=== PATIENT | female | born 1995 | race African-American/Black ===

== ENCOUNTER 2020-06-29 19:13 | Outpatient (CLI) | payer OTHER ==
[~2020-06-29] VITALS: Ht 165.1 cm; Wt 82.1 kg
[2020-06-29 19:47] VITALS: BP 125/74
[2020-06-29] MEDS ORDERED: PRENTAB9 PO (19:53)
--- NOTE | 2020-06-29 20:51 | IPNPDOC ---
Text Note Date of Service The patient was seen on 06/29/20. NOTE 06/29/202042 PM 24 YO LMP 10/22/19 EDC 07/28/20 AT 35.4 WEEKS THOUGHT SROM NO PAD NO DRAINAGE. NO DISTRESS NO DISCHARGE NO BLEEDING NO CONTRACTIONS . CATEGORY 1 STRIP . STERILE VAGINAL EXAMINATION NO POOLING NO DISCHARGE NITRAZINE NEGATIVE , SLIDE MICRO NEGATIVE GBS CULTURE DONE CERVIX LONG THICK CLOSED . US CONSENTED CHANEL 3 QUADRANTS 12.03 CM SMALLEST VERTICAL 2,81 CM VERTEX LIMB MOVEMENT NOTED . PATIENT GIVEN PRECAUTION DISCHARGED UNDELIVERED VS,Fishbone, I+O VS, Fishbone, I+O Vital Signs Date Time Temp Pulse Resp B/P (MAP) Pulse Ox O2 Delivery O2 Flow Rate FiO2 06/29/20 19:47 98.4 140 16 125/74 (91) URINE 1,020 PH 5 ALL NEGATIVE Khurram Gaines MD Jun 29, 2020 20:51
== END 2020-06-29 20:45 | disposition home or self-care (01) ==
LOC: EEVIPCON 19:13 → M LDO 19:13
PROVIDERS: ATTEND Obstetrics & Gynecology
DX: O26.893 Other specified pregnancy related conditions, third trimester (principal); Z3A.35 35 weeks gestation of pregnancy
CPT/HCPCS: 59025; 76815; 87081; G0378; G0463

== ENCOUNTER 2020-08-03 01:39 | Inpatient (IN) | payer OTHER ==
[~2020-08-03] VITALS: Ht 165.1 cm; Wt 86.1 kg
[2020-08-03] VITALS (16 sets, daily range): BP systolic 104–234; BP diastolic 59–151
[~2020-08-03 01:39] MED LIST: PRENTAB9 PO
[2020-08-03 02:20] LABS: HEMOGLOBIN 10.8 g/dl (12.0-15.5); MEAN CORPUSCULAR HEMOGLOBIN 27.1 pg (27.0-33.0); MEAN CORPUSCULAR HGB CONC 31.8 g/dl (32.0-36.5); MEAN CORPUSCULAR VOLUME 85.4 fl (80.0-96.0); PLATELET COUNT, AUTOMATED 241 10^3/uL (150-450); RED BLOOD COUNT 3.98 10^6/uL (4.00-5.40); WHITE BLOOD COUNT 7.5 10^3/uL (4.0-10.0)
[2020-08-03] MEDS ORDERED: FENTANYL 2MCG/ML ROPIVACAINE 0.2% IN 0.9% NACL 100ML IVBAG As Ordered ONE (02:56)
--- NOTE | 2020-08-03 03:03 | HPEPDOC ---
Obstetrical History & Physical General Date of Admission Aug 03, 2020 at 02:03 History of Present Illness 24yo at 40+5 presents in early labor. She has been painfully cristian since this morning and is requesting an epidural. RN exam in triage 4cm. She is scheduled for induction Sunday. She denied LOF, decreased FM, VB. 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 Past Medical History Medical History Pre- normocytic anemia with normal work up, stable over Surgical History: Denies/None Family History Significant Family History: No pertinent family hx Social History Marital Status: Family situation: Spouse/partner home Psychosocial History: No pertinent psych hx * Smoker: non-smoker Alcohol: Denies Drugs: denies Imunizations Tdap status: current Influenza Status: current Allergies Coded Allergies: No Known Drug Allergies (Verified Allergy, Unknown, 06/29/20) Medications Scheduled No.137/Iron/Folic Acd ( Vitamin Tablet) 1 Each Tablet, 1 TAB PO DAILY Physical Examination Physical Examination GENERAL: Alert and oriented times three. BREAST: . ABDOMEN: Gravid and non-tender to touch. FETUS: fetus is vertex (VTX) by US HEART RATE: Regular rate and rhythm. LUNGS: Clear to auscultation (CTA). EXTREMITIES: No edema. No clonus. Laboratory Data 24H LABS Laboratory Tests 2 08/03/20 02:13: Nucleated Red Blood Cells % (auto) 0.0 08/03/20 02:32: Serology Scanned Report Hepatitis B Testing CBC/BMP Laboratory Tests 08/03/20 02:13 Urine Culture: Contaminated Pertinent Laboratoy Data Blood Type: A+ RBC Antibody Screen: Negative HIV: Negative Hepatitis B: Negative Rapid Plasma Reagin: Nonreactive Rubella: Immune Varicella: Immune Chlamydia/Gonorrhea: Negative Group B Streptococcus: Negative Quad Screen Test: Declined Cystic Fibrosis: Negative Glucose Tolerance Test: 130 Anatomy Ultrasound Placenta Location: Anterior Normal Anatomy: Yes Estimated Weight (grams): 3300 Steroid Therapy Steroid Therapy: No Vaginal Examination Dilation: 4 cm Effacement: 70% Station: -1 Cervical Consistency: Soft Cervical Position: Middle Presentation: Cephalic presentation (by US) Assessment Heart Rate (FHR): 130 Variability: Moderate Accelerations: Positive Decelerations: None Tocometer Contractions: Yes Frequency: regular Multi-drug resistant Organism: No history of MDRO Assessment/Plan Assessment 24yo at 40+5 presents in early labor. APC 1. Excessive weight gain 41# 2. 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 Diet: clears Group B Streptococcus (GBS) [negative]. Labs and intravenous (IV) per unit protocol. Counseled on Pitocin and induction of labor (IOL). Anticipate [normal spontaneous delivery ()]. C-S as appropriate. MAMADOU CAPPS DO Aug 03, 2020 03:02
[2020-08-03] MEDS ORDERED: diphenhydrAMINE 50MG/ML VIAL (J1200) IV PRN (04:05)
[2020-08-03] MEDS ORDERED: LACTATED RINGER'S 1000 ML IV PRN (04:05)
[2020-08-03] MEDS ORDERED: FENTANYL/ROPIVACAINE/NACL BAG 100 ML EPIDURAL SCH (04:05)
[2020-08-03] MEDS ORDERED: EPIDURAL/PCA KEYS XX PRN (04:05)
[2020-08-03] MEDS ORDERED: ePHEDrine SULFATE 25 MG/5 ML(5MG/ML) SYRINGE IV PRN (04:05)
[2020-08-03] MEDS ORDERED: ONDANSETRON 4MG/2ML VIAL IV PRN (04:05)
[2020-08-03] MEDS ORDERED: NALOXONE INJ 0.4MG/1ML VIAL (J2310 PER 1MG) IV PRN (04:05)
[2020-08-03] MEDS ORDERED: REFRIGERATOR IV KEYS XX PRN (04:05)
[2020-08-03] MEDS ORDERED: EPIDURAL COMMENT XX SCH (04:05)
[2020-08-03] MEDS ORDERED: OXYTOCIN 30 UNITS IN 0.9% NaCl 500ML IV BAG (J2590) As Ordered ONE (04:13)
[2020-08-03] MEDS ORDERED: LIDOCAINE 1% MDV 20ML VIAL As Ordered ONE (05:01)
[2020-08-03 05:17] LABS: CORD GAS ABE V -3.9; CORD GAS HCO3 V 22.4 MEQ/L; CORD GAS PCO2 V 44.9 mmHg; CORD GAS PH V 7.315 UNITS; CORD GAS PO2 V 30.4 mmHg; CORD GAS SBC V 20.7 MEQ/L; CORD GAS TCO2 V 23.7 MEQ/L
--- NOTE | 2020-08-03 05:24 | DNPDOC ---
[facility] Delivery Note Delivery Note DATE OF DELIVERY: 08/03/20 PREDELIVERY DIAGNOSIS: 40+5/7 weeks' gestation and labor, excessive weight gain, pre- normocytic anemia POST DELIVERY DIAGNOSIS: Delivered. 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 Apollo Capps DO ANESTHESIA: epidural, lidocaine injection ESTIMATED BLOOD LOSS: 200 mL. FINDINGS: 3060g, Score 9/9, nuchal cord times 0. DELIVERY SUMMARY: 24yo at 40+5 presents in early labor and progressed without augmentation to C/C/+3. With good maternal effort she delivered the fe geraldo head followed by the corpus without difficulty. The cord clamping was delayed 60s and the cord was cut by the FOB. Cord gasses and blood were obtained. The placenta was delivered with gentle downward traction, it was confirmed to be in-tact with a 3 vessel cord. The uterus was firm and bleeding was scant. A small periclitoral laceration that had a persistent ooze was noted and was reapproximated with 3-0 vicryl rapid. The surgical site was hemostatic. The uterus remained firm. The bladder was drained immediately following delivery. There were no complications. The sponge, lap and needle counts were correct. APOLLO CAPPS DO Aug 03, 2020 05:24
[2020-08-03] MEDS ORDERED: LR 1,000 ML IV SCH (05:31)
[2020-08-03] MEDS ORDERED: OXYTOCIN DRIP 30 UNITS in IV 1 EA IV SCH (05:31)
[2020-08-03] MEDS ORDERED: DIBUCAINE 1% OINTMENT 30GM TOP PRN (05:35)
[2020-08-03] MEDS ORDERED: IBUPROFEN 800 MG TAB PO PRN (05:35)
[2020-08-03] MEDS ORDERED: DOCUSATE SODIUM 100MG CAPSULE PO PRN (05:35)
[2020-08-03] MEDS ORDERED: ACETAMINOPHEN TAB 650MG DOSE (2X325MG) PO PRN (05:35)
[2020-08-03] MEDS ORDERED: ACETAMINOPHEN 500 MG TAB PO PRN (05:35)
[2020-08-03] MEDS ORDERED: IBUPROFEN 600MG TAB PO PRN (05:35)
[2020-08-03] MEDS ORDERED: LIDOCAINE 1% MDV 20ML VIAL INFIL ONE (05:45)
[2020-08-03] MEDS ORDERED: SLF 3 ML SYR IV PRN (07:40)
[2020-08-03] MEDS: PRENATAL VITAMINS CHEWABLE TABLET PO SCH (11:00)
[2020-08-03] MEDS: SLF 3 ML SYR IV SCH ×2 (14:00→22:00)
[2020-08-04 06:00] VITALS: BP 108/59
[2020-08-04] MEDS: SLF 3 ML SYR IV SCH (06:00)
--- NOTE | 2020-08-04 06:52 | OBDS ---
[facility] Obstetrical Discharge Sum. Obstetrical Discharge Summary Date: Aug 04, 2020 Time: 07:00 : 2 Term: 1 Pre-term: 0 Abortions: 1 Livin VDRL: Non-Reactive Rh: Positive Rubella: Immune Labor SPONTANEOUS VAGINAL DELIVERY FEMALE 6LBS 12 OZ 3060 GRAMS 9/9 INTACT PERINEUM CLITORAL TEAR REPAIRED UNDER LOCAL. SPONTANEOUS PLACENTA COMPLETE Infant Sex: Female Weight: pounds (6), ounces (12), grams (3060) Anesthesia: Regional Anesthesia (LOCAL FOR REPAIR) Episiotomy NONE A/P, Post Course List any complications Item Value Date Time White Blood Count 7.5 10^3/uL 08/03/20 0213 Red Blood Count 3.98 10^6/uL L 08/03/20 0213 Hemoglobin 10.8 g/dl L 08/03/20 0213 Hematocrit 34.0 % L 08/03/203 Mean Corpuscular Volume 85.4 fl 08/03/20 0213 Mean Corpuscular Hemoglobin 27.1 pg 08/03/20 0213 Mean Corpuscular Hemoglobin Concent 31.8 g/dl L 08/03/20 0213 Red Cell Distribution Width 14.7 % H 08/03/20 021 Platelet Count 241 10^3/uL 08/03/20212 Admission diagnosis: .LABOR Discharge diagnosis: CONFINED Condition at Discharge: STABLE Discharge Instructions: [Home/other] 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
[2020-08-04] MEDS ORDERED: DOK1CAP7 PO (06:54)
[2020-08-04] MEDS ORDERED: IBUP-1022 PO (06:54)
[2020-08-04] MEDS: PRENATAL VITAMINS CHEWABLE TABLET PO SCH (09:01)
== END 2020-08-04 16:40 | disposition home or self-care (01) | DRG 807 ==
LOC: M LDO 01:39 → M LDI 02:03 → M OBS 07:29
PROVIDERS: ADMIT Obstetrics & Gynecology; ATTEND Obstetrics & Gynecology
PROC: 10E0XZZ Delivery of Products of Conception, External Approach (ICD-10-PCS; principal; 2020-08-03)
PROC: 0HQ9XZZ Repair Perineum Skin, External Approach (ICD-10-PCS; 2020-08-03)
DX: O48.0 Post-term pregnancy (principal); Z37.0 Single live birth; Z3A.40 40 weeks gestation of pregnancy; O26.00 Excessive weight gain in pregnancy, unspecified trimester; D64.9 Anemia, unspecified; O99.02 Anemia complicating childbirth; O70.0 First degree perineal laceration during delivery

== ENCOUNTER 2020-11-18 18:28 | Emergency (ER) | payer OTHER ==
[~2020-11-18] VITALS: Ht 166.4 cm; Wt 78.6 kg
[~2020-11-18 18:28] MED LIST changes: +DOK1CAP7 PO; +IBUP-1022 PO
[2020-11-18 23:21] VITALS: BP 123/65
== END 2020-11-18 23:23 | disposition home or self-care (01) ==
LOC: M ED 18:28
DX: S46.311A Strain of muscle, fascia and tendon of triceps, right arm, initial encounter (principal); S46.312A Strain of muscle, fascia and tendon of triceps, left arm, initial encounter; X50.9XXA Other and unspecified overexertion or strenuous movements or postures, initial encounter; Y92.89 Other specified places as the place of occurrence of the external cause; Y93.B2 Activity, push-ups, pull-ups, sit-ups

== ENCOUNTER 2021-10-27 07:41 | Observation (INO) | payer OTHER ==
[~2021-10-27] VITALS: Ht 165.1 cm; Wt 71.8 kg
[~2021-10-27 07:41] MED LIST changes: +DOK1CAP4 PO; -DOK1CAP7 PO
[2021-10-27] MEDS ORDERED: KETOROLAC 30 MG/ML 1ML VIAL IM ONE (07:55)
[2021-10-27] MEDS ORDERED: diazePAM 5MG TABLET PO ONE (08:50)
[2021-10-27] MEDS ORDERED: LIDOCAINE 5% (LIDODERM) PATCH TD ONE (08:50)
[2021-10-27] MEDS ORDERED: MORPHINE 4 MG/ML 1ML VIAL/SYRINGE IV ONE (11:45)
[2021-10-27 13:32] LABS: ERYTHROCYTE SEDIMENTATION RATE 6 mm/hr (0-20)
[2021-10-27 13:33] LABS: BASO % 0.5 % (0.0-1.0); HEMATOCRIT 36.9 % (36.0-47.0); HEMOGLOBIN 12.3 g/dl (12.0-15.5); LYMPH # 2.1 10^3/uL (1.5-5.0); LYMPH % 37.5 % (24.0-44.0); MEAN CORPUSCULAR HEMOGLOBIN 28.5 pg (27.0-33.0); MEAN CORPUSCULAR HGB CONC 33.3 g/dl (32.0-36.5); MEAN CORPUSCULAR VOLUME 85.4 fl (80.0-96.0); MONO # 0.4 10^3/uL (0.0-0.8); NEUTROPHILS % 54.8 % (36.0-66.0); PLATELET COUNT, AUTOMATED 251 10^3/uL (150-450); RED BLOOD COUNT 4.32 10^6/uL (4.00-5.40); WHITE BLOOD COUNT 5.5 10^3/uL (4.0-10.0)
[2021-10-27] MEDS ORDERED: PROHANCE 279.3MG/ML 15ML VIAL As Ordered ONE (13:39)
[2021-10-27] MEDS ORDERED: NS 1,000 ML IV ONE (18:05)
[2021-10-27] MEDS ORDERED: MORPHINE 2 MG/ML 1ML VIAL IV PRN (20:15)
[2021-10-27] MEDS ORDERED: HOME MED LIST COMPLETE! XX SCH (20:20)
[2021-10-27] MEDS ORDERED: **NOTE PATIENT COMMENT** MISC XX SCH (21:00)
[2021-10-27] MEDS: HEPARIN SOD (PORCINE) 5000UNITS/ML 1ML VIAL/SYRINGE SC SCH (21:00)
[2021-10-27 23:33] LABS: INR 1.11; PROTHROMBIN TIME 14.7 SECONDS (12.7-14.5)
[2021-10-28 07:41] LABS: HEMATOCRIT 35.5 % (36.0-47.0); HEMOGLOBIN 11.6 g/dl (12.0-15.5); MEAN CORPUSCULAR HEMOGLOBIN 28.2 pg (27.0-33.0); MEAN CORPUSCULAR HGB CONC 32.7 g/dl (32.0-36.5); MEAN CORPUSCULAR VOLUME 86.2 fl (80.0-96.0); PLATELET COUNT, AUTOMATED 226 10^3/uL (150-450); RED BLOOD COUNT 4.12 10^6/uL (4.00-5.40); WHITE BLOOD COUNT 3.9 10^3/uL (4.0-10.0)
[2021-10-28 08:08] LABS: BLOOD UREA NITROGEN 9 MG/DL (7-18); CALCIUM LEVEL 9.3 MG/DL (8.5-10.1); CARBON DIOXIDE LEVEL 27 MEQ/L (21-32); CHLORIDE LEVEL 110 MEQ/L (98-107); CREATININE FOR GFR 1.01 MG/DL (0.55-1.30); GLOMERULAR FILTRATION RATE > 60.0 (>60); GLUCOSE, FASTING 85 MG/DL (70-100); POTASSIUM SERUM 4.1 MEQ/L (3.5-5.1); SODIUM LEVEL 141 MEQ/L (136-145)
[2021-10-28] MEDS: HEPARIN SOD (PORCINE) 5000UNITS/ML 1ML VIAL/SYRINGE SC SCH (09:01)
[2021-10-28] MEDS ORDERED: IBUPROFEN 800 MG TAB PO PRN (09:10)
[2021-10-28] MEDS ORDERED: HYDR-3713 PO (12:35)
[2021-10-28] MEDS ORDERED: IBUP80TA PO (12:35)
[2021-10-28 14:01] VITALS: BP 116/72
== END 2021-10-28 14:10 | disposition home or self-care (01) ==
LOC: M ED 07:41 → M ED INP 20:10
PROVIDERS: ADMIT Family Medicine; ATTEND Family Medicine
DX: G95.89 Other specified diseases of spinal cord (principal); M54.16 Radiculopathy, lumbar region
CPT/HCPCS: 36415; 72110; 72148; 72149; 80047; 80048; 84702; 85025; 85027; 85610; 85652; 86140; 87426; 96361; 96372; 96374; 99285; A9576; J1885; J2270